=== PATIENT | female | born 1985 | race Asian ===

== ENCOUNTER 2019-06-30 01:06 | Emergency (ER) | payer SELFPAY ==
[~2019-06-30] VITALS: Ht 162.6 cm; Wt 63.5 kg
[2019-06-30 01:11] VITALS: Ht 162.6 cm; Wt 63.5 kg
[2019-06-30 01:58] VITALS: BP 120/86
== END 2019-06-30 01:58 | disposition home or self-care (01) ==
LOC: ED 01:06
DX: H66.92 Otitis media, unspecified, left ear (principal); R05 Cough; R09.89 Other specified symptoms and signs involving the circulatory and respiratory systems; Z98.890 Other specified postprocedural states